=== PATIENT | male | born 1955 ===

== ENCOUNTER 2025-07-04 12:30 | Inpatient (IN) | payer OTHER ==
[~2025-07-04] VITALS: Ht 180.3 cm; Wt 111.1 kg
[2025-07-04 13:00] LABS: COVID-19 AG NEGATIVE (NEGATIVE)
[2025-07-04] MEDS ORDERED: MYFORTIC360 MG (13:19)
[2025-07-04] MEDS ORDERED: XANAX0.25 MG (13:20)
[2025-07-04] MEDS ORDERED: NORVASC5 MG (13:20)
[2025-07-15] MEDS ORDERED: CEFAZOLIN SODIUM 1,000 MG VIAL ONE (06:06)
[2025-07-15] MEDS ORDERED: VANCOMYCIN HCL 1,000 MG VIAL ONE ×3 (06:06→13:56)
[2025-07-15] MEDS ORDERED: METHYLPREDNISOLONE ACETATE 80 MG/ML VIAL ONE (06:34)
[2025-07-15] MEDS ORDERED: METHYLPREDNISOLONE SOD SUCC 125 MG VIAL ONE (06:34)
[2025-07-15] MEDS ORDERED: IOVERSOL 320 MG/ML - 50 ML VIAL IV ONE (06:35)
[2025-07-15] MEDS ORDERED: AMOX-CLAV 875-1 EACH PO (07:24)
[2025-07-15] MEDS ORDERED: PERCOCET 5-3251 EACH PO (07:24)
[2025-07-15] MEDS ORDERED: MEDROLPACK PO (07:24)
[2025-07-15] MEDS ORDERED: COLACE100 MG PO (07:25)
[2025-07-15] MEDS ORDERED: NEURONTIN800 MG PO (07:25)
[2025-07-15] MEDS ORDERED: ZOFRAN8 MG PO (07:25)
[2025-07-15] MEDS ORDERED: GABAPENTIN100 M2 PO (07:25)
[2025-07-15] MEDS ORDERED: FAMOTIDINE/PF 20 MG/2 ML VIAL ONE (07:26)
[2025-07-15] MEDS ORDERED: 0.9 % SODIUM CHLORIDE 1,000 ML IV SCH (07:30)
[2025-07-15] MEDS ORDERED: ENALAPRILAT DIHYDRATE 1.25 MG/ML VIAL IV PRN (07:30)
[2025-07-15] MEDS ORDERED: PROMETHAZINE HCL 50 MG/ML AMPUL IM PRN (07:30)
[2025-07-15] MEDS ORDERED: MORPHINE SULFATE 4 MG/ML CARTRIDGE IV SCH (09:00)
[2025-07-15] MEDS ORDERED: TAMSULOSIN HCL 0.4 MG CAP PO SCH (09:00)
[2025-07-15] MEDS ORDERED: VANCOMYCIN HCL 1,000 MG VIAL IV SCH (09:00)
[2025-07-15] MEDS ORDERED: METHYLPREDNISOLONE SOD SUCC 125 MG VIAL IV SCH (09:00)
[2025-07-15] MEDS ORDERED: CEFAZOLIN SODIUM 1,000 MG in 0.9 % SODIUM CHLORIDE 50 ML IV SCH (09:00)
[2025-07-15] MEDS ORDERED: DOCUSATE SODIUM 100MG CAP PO SCH (09:00)
[2025-07-15 13:27] VITALS: BP 119/82; O2SAT 93
[2025-07-15 15:59] VITALS: BP 114/71; O2SAT 97
[2025-07-15] MEDS ORDERED: ACETAMINOPHEN 500 MG GEL..CAP PO SCH (20:00)
[2025-07-15] MEDS ORDERED: GABAPENTIN 800 MG TABLET PO SCH (21:00)
[2025-07-15] MEDS ORDERED: VANCOMYCIN HCL 500 MG VIAL IV SCH (21:00)
[2025-07-16] MEDS ORDERED: SODIUM CHLORIDE 0.45 % 1,000 ML IV SCH
[2025-07-16 00:31] VITALS: BP 115/64; O2SAT 98
[2025-07-16] MEDS ORDERED: OxyCODONE HCL 5 MG TABLET (ROXICODONE) PO PRN (06:01)
[2025-07-16] MEDS ORDERED: SODIUM CL 0.9% 50 ML IV.SOLN IV ONE (06:44)
[2025-07-16 07:29] LABS: BUN CREA RATIO 16.0 (7.0-25.0); CREATININE SERUM 1.17 mg/dL (0.70-1.30); GFR 61.63; GLUCOSE FASTING 147.0 mg/dL (65-100); OSMOLALITY SERUM 284.0 MOSM/KG (275-295)
[2025-07-16 08:30] VITALS: BP 121/85; O2SAT 98
[2025-07-16 08:54] LABS: BASO % 0.1 % (0.1-1.2); EOS # 0.00 (0.04-0.54); EOS % 0.0 % (0.7-7.0); LYMPH # 0.31 (1.18-3.74); LYMPH % 1.9 % (19.3-53.1); MEAN PLATELET VOLUME 11.40 fl (9.4-12.4); MONO # 0.40 (0.24-0.82); MONO % 2.4 % (4.7-12.5); NEUT # 15.93 (1.56-6.13); NEUT % 95.1 % (34.0-71.1); RED CELL DISTRIBUTION WIDTH 12.9 % (11.6-14.4)
[2025-07-16] MEDS ORDERED: AMLODIPINE BESYLATE 5 MG TABLET PO SCH (09:00)
[2025-07-16 13:38] LABS: COVID-19 AG NEGATIVE (NEGATIVE)
[2025-07-16 15:56] VITALS: BP 133/83; O2SAT 96
[2025-07-17] VITALS: BP 137/94; O2SAT 98
[2025-07-17 08:00] VITALS: BP 109/75; O2SAT 98
== END 2025-07-17 15:20 | DRG 402 ==
LOC: O/R 07-15 06:00 → SURG 07-15 06:00 → SURH 07-15 07:00 → O/R 07-15 11:37 → SURH 07-15 12:30 → SURG 07-15 13:03
PROVIDERS: ADMIT Orthopaedic Surgery Orthopaedic Surgery of the Spine; ATTEND Orthopaedic Surgery Orthopaedic Surgery of the Spine
PROC: 0SG3071 Fusion of Lumbosacral Joint with Autologous Tissue Substitute, Posterior Approach, Posterior Column, Open Approach (ICD-10-PCS; 2025-07-15)
PROC: 0ST40ZZ Resection of Lumbosacral Disc, Open Approach (ICD-10-PCS; 2025-07-15)
PROC: 0QB30ZZ Excision of Left Pelvic Bone, Open Approach (ICD-10-PCS; 2025-07-15)
PROC: 07DR0ZZ Extraction of Iliac Bone Marrow, Open Approach (ICD-10-PCS; 2025-07-15)
PROC: 4A1104G Monitoring of Peripheral Nervous Electrical Activity, Intraoperative, Open Approach (ICD-10-PCS; 2025-07-15)
PROC: 4A12X4Z Monitoring of Cardiac Electrical Activity, External Approach (ICD-10-PCS; 2025-07-15)
PROC: 0SG30A0 Fusion of Lumbosacral Joint with Interbody Fusion Device, Anterior Approach, Anterior Column, Open Approach (ICD-10-PCS; principal; 2025-07-15 07:00)
DX: M48.07 Spinal stenosis, lumbosacral region (principal); M43.17 Spondylolisthesis, lumbosacral region; M54.17 Radiculopathy, lumbosacral region; I10 Essential (primary) hypertension; F41.9 Anxiety disorder, unspecified